=== PATIENT | female | born 1990 | race Caucasian/White ===

== ENCOUNTER 2017-04-21 16:21 | Emergency (ER) | payer OTHER ==
[2017-04-21 16:28] VITALS: BMI 37.2
--- NOTE | 2017-04-21 17:51 | DR.GENAD ---
HPI - PCP Primary Care Physician: Adelina - Complaint/Symptoms Chief Complaint:: "Since Friday I have been running off at the stomach really bad. I have not been throwing up or anthing, but my stomach has been hurting really bad." - Nurses notes reviewed Nurses Notes Review: Yes - Source History Provided: Patient - Mode of Arrival Mode of Arrival: Ambulatory - Timing Onset of Chief Complaint: 04/19/17 Came on: Suddenly - Duration Duration: Constant Duration: Days - Severity Severity: Moderate PMH - PMH Past Medical History: No Past Surgical History: Yes Surgical History: - Family History History of Family Medical Conditions: Yes Family Medical History: Diabetes Mellitus, CA, Heart Failure, Hypertension - Social History Does patient currently use any type of tobacco product: No Have you used tobacco products in the last 12 months: No Type of Tobacco Use: None Does any household member use tobacco: No Alcohol Use: None Do you use any recreational Drugs:: No Lives With: Family Lives Where: Home - infectious screening In the last 2 months have you had wt loss of >10#?: NO Have you had fever, night sweats or hemotysis?: No Have you traveled outside the country in the last 6 months?: No Isolation: Standard ROS - Review of Systems Constitutional: No Symptoms Reported Eyes: No Symptoms Reported ENTM: No Symptoms Reported Respiratoy: No Symptoms Reported Cardiovascular: No Symptoms Reported Gastrointestinal/Abdominal: Abdominal Pain, Diarrhea Genitourinary: No Symptoms Reported. negative: Dysuria, Frequency, Hematuria Neurological: No Symptoms Reported Musculoskeletal: No Symptoms Reported Integumentary: No Symptoms Reported Hematologic/Lymphatic: No Symptoms Reported Endocrine: No Symptoms Reported All Other Systems: Reviewed and Negative PE - Vital Signs Vitals: Temperature 97.5 F Pulse Rate 71 Respiratory Rate 18 Blood Pressure 114/63 O2 Sat by Pulse Oximetry 100 - General Limitations: No Limitations General Appearance: Alert - Head Head Exam: Normal Inspection - Eyes Eye exam: Normal Appearance - ENT ENT Exam: Normal External Ear Exam External Ear Exam: Normal External Inspection TM/Canal Exam: Bilateral Normal Nose Exam: Normal Nose Exam Mouth Exam: Normal Inspection Throat Exam: Normal Inspection - Neck Neck Exam: Trachea Midline - Chest Chest Inspection: Symmetric Chest Wall Rise - Respiratory Respiratory Exam: Normal Lung Sounds Bilat Respiratory Exam: Bilateral Clear to Auscultation - Cardiovascular Cardiovascular Exam: Regular Rate, Normal Rhythm, Normal Heart Sounds - Abdominal Exam Abdominal Exam: Normal Bowel Sounds, Soft, Tenderness Abdominal Tenderness: Diffuse, Moderate - Extremities Extremities Exam: Normal Inspection - Back Back Exam: Normal Inspection - Neurologic Neurological Exam: Alert, Oriented X3 - Psychiatric Psychiatric Exam: Normal Affect, Normal Mood - Skin Skin Exam: Normal Color ROR - Labs Reviewed Result Diagrams: 04/21/17 17:56 04/21/17 17:56 Laboratory: WBC 7.0 X10^3/uL (3.6-10.0) 04/21/17 17:56 RBC 4.55 X10^6/uL (3.5-5.4) 04/21/17 17:56 Hgb 12.7 g/dL (12.0-16.0) 04/21/17 17:56 Hct 38.4 % (36.0-47.0) 04/21/17 17:56 MCV 84.4 fL (80.0-100.0) 04/21/17 17:56 MCH 28.0 pg (27.0-34.0) 04/21/17 17:56 MCHC 33.2 g/dL (33.0-35.0) 04/21/17 17:56 RDW 13.6 % (11.6-16.5) 04/21/17 17:56 Plt Count 293 X10^3/uL (150.0-450.0) 04/21/17 17:56 MPV 8.0 fL (7.4-11.0) 04/21/17 17:56 Neut % 55.7 % (42.0-75.0) 04/21/17 17:56 Lymph % 33.3 % (21.0-51.0) 04/21/17 17:56 [place] % 8.7 % (0.0-13.0) 04/21/17 17:56 Eos % 1.8 % (0.9-2.9) 04/21/17 17:56 Baso % 0.5 % (0.2-1.0) 04/21/17 17:56 Neut # 3.9 x10^3/uL (2.2-4.8) 04/21/17 17:56 Lymph # 2.3 X10^3/uL (1.3-2.9) 04/21/17 17:56 [place] # 0.6 x10^3/uL (0.3-0.8) 04/21/17 17:56 Eos # 0.1 x10^3/uL (0.0-0.2) 04/21/17 17:56 Baso # 0.0 X10^3/uL (0.0-0.1) 04/21/17 17:56 Absolute Nucleated RBC 0.0 /100WBC 04/21/17 17:56 Sodium 140 mmol/L (136-145) 04/21/17 17:56 Corrected Sodium TNP 04/21/17 17:56 Potassium 3.2 mmol/L (3.5-5.1) L 04/21/17 17:56 Chloride 104 mmol/L (98-107) 04/21/17 17:56 Carbon Dioxide 26.5 mmol/L (21-32) 04/21/17 17:56 BUN 9 mg/dL (7-18) 04/21/17 17:56 Creatinine 0.95 mg/dL (0.55-1.02) 04/21/17 17:56 Est GFR (MDRD) Af Amer > 60 (>60) 04/21/17 17:56 Est GFR (MDRD) Non-Af > 60 (>60) 04/21/17 17:56 Glucose 78 mg/dL (65-99) 04/21/17 17:56 Calcium 9.0 mg/dL (8.5-10.1) 04/21/17 17:56 Corrected Calcium TNP 04/21/17 17:56 Total Bilirubin 0.40 mg/dL (0.2-1.0) 04/21/17 17:56 AST 15 Units/L (15-37) 04/21/17 17:56 ALT 10 Units/L (12-78) L 04/21/17 17:56 Alkaline Phosphatase 70 Units/L (46-116) 04/21/17 17:56 Total Protein 9.1 g/dL (6.4-8.2) H 04/21/17 17:56 Albumin 3.7 g/dL (3.4-5.0) 04/21/17 17:56 Globulin 5.4 g/dL (2.5-4.5) H 04/21/17 17:56 Albumin/Globulin Ratio 0.7 Ratio (1.1-2.1) L 04/21/17 17:56 Amylase 46 Units/L (25-115) 04/21/17 17:56 Lipase 65 Units/L (73-393) L 04/21/17 17:56 HCG, Qual Negative <10 mIU/mL 04/21/17 17:56 - Discharge Plan Condition: Stable Prescriptions: Dicyclomine HCl [Bentyl Cap 10 mg] 10 mg PO TID PRN #15 cap PRN Reason: Diphenoxylate/Atropine [Lomotil] 1 tab PO TID PRN #21 tab PRN Reason: - Follow ups/Referrals Follow ups/Referrals: Mayito Sahu [Primary Care Provider] - 3 days - Instructions Instructions: Abdominal Pain, Adult, [id number], Viral Gastroenteritis, Adult , [id number] Additional Instructions: RETURN TO ED IF WORSE.
[2017-04-21 18:05] LABS: BASOPHILS % (AUTO) 0.5 % (0.2-1.0); EOSINOPHILS # (AUTO) 0.1 x10^3/uL (0.0-0.2); EOSINOPHILS % (AUTO) 1.8 % (0.9-2.9); HEMATOCRIT 38.4 % (36.0-47.0); HEMOGLOBIN 12.7 g/dL (12.0-16.0); LYMPHOCYTES # (AUTO) 2.3 X10^3/uL (1.3-2.9); LYMPHOCYTES % (AUTO) 33.3 % (21.0-51.0); MEAN CORPUSCULAR HGB CONC 33.2 g/dL (33.0-35.0); MEAN CORPUSCULAR VOLUME 84.4 fL (80.0-100.0); MONOCYTES # (AUTO) 0.6 x10^3/uL (0.3-0.8); MONOCYTES % (AUTO) 8.7 % (0.0-13.0); NEUTROPHILS # (AUTO) 3.9 x10^3/uL (2.2-4.8); NEUTROPHILS % (AUTO) 55.7 % (42.0-75.0); PLATELET COUNT 293 X10^3/uL (150.0-450.0); RED BLOOD COUNT 4.55 X10^6/uL (3.5-5.4); RED CELL DISTRIBUTION WIDTH 13.6 % (11.6-16.5)
[2017-04-21 18:23] LABS: ALANINE AMINOTRANSFERASE 10 Units/L (12-78); ALBUMIN 3.7 g/dL (3.4-5.0); ALKALINE PHOSPHATASE 70 Units/L (46-116); ASPARTATE AMINO TRANSFERASE 15 Units/L (15-37); BLOOD UREA NITROGEN 9 mg/dL (7-18); CARBON DIOXIDE 26.5 mmol/L (21-32); CHLORIDE 104 mmol/L (98-107); CREATININE 0.95 mg/dL (0.55-1.02); SODIUM 140 mmol/L (136-145); TOTAL PROTEIN 9.1 g/dL (6.4-8.2); eGFR BLACK RACES > 60 (>60); eGFR NON BLACK RACES > 60 (>60)
[2017-04-21 18:25] LABS: SERUM PREGNANCY TEST, QUAL NEGATIVE <10 mIU/mL
[2017-04-21 18:26] LABS: AMYLASE 46 Units/L (25-115); LIPASE 65 Units/L (73-393)
--- NOTE | 2017-04-21 19:04 | RAD ---
ACUTE ABDOMINAL SERIES CLINICAL HISTORY: 27-year-old female with left upper quadrant abdominal pain and diarrhea. COMPARISON: None. FINDINGS: PA chest radiograph demonstrates normal cardiopericardial silhouette. There is no focal consolidation , pleural effusion or pneumothorax. Pulmonary vascularity is normal. Abdominal radiographs demonstrate a nonobstructive bowel gas pattern. Gas and stool are seen througho ut the colon. There is no small bowel distention. There is no radiographic evidence of pneumoperitone um. Imaged osseous structures are intact. Soft tissues are unremarkable. IMPRESSION: 1. No acute cardiopulmonary process. 2. Nonobstructive bowel gas pattern without radiographic evidence of pneumoperitoneum. Reported By:
[2017-04-21] MEDS ORDERED: POTASSIUM CHLORIDE LIQ 20 MEQ UDC PO ONE (19:48)
[2017-04-21] MEDS ORDERED: LOMOTIL PO ONE (19:51)
[2017-04-21] MEDS ORDERED: LOMOTIL ONE (19:53)
[2017-04-21] MEDS ORDERED: POTASSIUM CHLORIDE LIQ 20 MEQ UDC ONE (19:53)
[2017-04-21 20:06] VITALS: BP 120/72
== END 2017-04-21 20:00 | disposition home or self-care (01) ==
LOC: ER 16:36
DX: A08.4 Viral intestinal infection, unspecified (principal); R10.84 Generalized abdominal pain; R14.3 Flatulence
CPT/HCPCS: 36415; 74022; 80053; 82150; 83690; 84703; 85025; 99282; 99283